=== PATIENT | female | born 1985 | race Caucasian/White ===

== ENCOUNTER 2016-10-09 20:39 | Emergency (ER) | payer OTHER ==
[2016-10-09 21:27] VITALS: BP 138/77
--- NOTE | 2016-10-09 23:51 | EDM.PDOC ---
ED HPI GI/ABDOMINAL - General Chief Complaint: Abdominal Pain Stated Complaint: ABDOMINAL PAIN Time Seen by Provider: 10/09/16 22:32 Source: Reports: Patient History Limitations: Reports: No limitations - History of Present Illness INITIAL COMMENTS - FREE TEXT/NARRATIVE: This patient complains of vomiting and diarrhea since yesterday. It's worse in the upper abdomen and down both sides. It seems to help if she sits up and crutches over a little bit. It's worse supine and standing. She had a little bit of fever yesterday and chills this morning. She's had a cholecystectomy and appendectomy. Her last diarrhea was tonight at 7 PM and was greenish appearing presently the pain is across the upper abdomen - Related Data Allergies/ADRs: Allergies Allergy/AdvReac Type Severity Reaction Status Date / Time latex Allergy Rash Verified 10/09/16 21:19 Home Meds: Home Meds ARIPiprazole [Abilify] 0.5 tab PO DAILY 10/09/16 [History] Sertraline [Zoloft] 1 tab PO DAILY 10/09/16 [History] Past Medical History - Past Surgical History GI Surgical History: Reports: Appendectomy, Cholecystectomy, Hernia, abdominal Social & Family History - Tobacco Use Smoking Status *Q: Never Smoker ED ROS GENERAL - Review of Systems Review Of Systems: See Below Constitutional: Reports: chills, weight gain Respiratory: Reports: No Symptoms Cardiovascular: Reports: No symptoms Endocrine: Reports: no symptoms GI/Abdominal: Reports: Abdominal pain, Diarrhea, Vomiting : Reports: no symptoms Musculoskeletal: Reports: no symptoms Skin: Reports: no symptoms ED EXAM, GI/ABD - Physical Exam Exam: See Below Exam Limited By: No limitations General Appearance: alert, WD/WN, mild distress (She sitting up on the stretcher sort of a hunched over at the waist) Eyes: bilateral: normal appearance Throat/Mouth: Normal oropharynx Respiratory/Chest: lungs clear Cardiovascular: regular rate, rhythm GI/Abdominal: normal bowel sounds, soft, mass (There is some stool mass palpable to the entire right side of abdomen. It's mildly tender. There is some tenderness in the epigastric area which is mild to moderate.) Extremities: normal inspection Skin Exam: Warm, Dry Course - Vital Signs Last Recorded V/S: Last Vital Signs Temp 37.1 C 10/09/16 21:26 Pulse 89 10/09/16 21:26 Resp 14 10/09/16 21:26 BP 138/77 10/09/16 21:26 Pulse Ox 97 10/09/16 21:26 - Orders/Labs/Meds Orders: Active Orders 24 hr Category Date Time Status Abdomen 2V AP Flat Upright [CR] Stat Exams 10/09/16 22:41 Taken Labs: Laboratory Tests 10/09/16 10/09/16 10/09/16 Range/Units 22:41 22:41 22:43 WBC 12.3 H (4.5-11.0) K/uL RBC 4.73 (3.30-5.50) M/uL Hgb 13.7 (12.0-15.0) g/dL Hct 41.8 (36.0-48.0) % MCV 88 (80-98) fL MCH 29 (27-31) pg MCHC 33 (32-36) % Plt Count 353 (150-400) K/uL Neut % (Auto) 66 (36-66) % Lymph % (Auto) 28 (24-44) % Hendricks % (Auto) 5 (2-6) % Eos % (Auto) 1 L (2-4) % Baso % (Auto) 1 (0-1) % Sodium 141 (140-148) mmol/L Potassium 3.8 (3.6-5.2) mmol/L Chloride 106 (100-108) mmol/L Carbon Dioxide 26 (21-32) mmol/L Anion Gap 9.0 (5.0-14.0) mmol/L BUN 8 (7-18) mg/dL Creatinine 0.9 (0.6-1.0) mg/dL Est Cr Clr Drug Dosing 92.20 mL/min Estimated GFR (MDRD) > 60 (>60) Glucose 99 (74-106) mg/dL Calcium 8.9 (8.5-10.1) mg/dL Total Bilirubin 0.1 L (0.2-1.0) mg/dL AST 15 (15-37) U/L ALT 34 (12-78) U/L Alkaline Phosphatase 61 (46-116) U/L Total Protein 7.6 (6.4-8.2) g/dL Albumin 3.7 (3.4-5.0) g/dL Globulin 3.9 H (2.3-3.5) g/dL Albumin/Globulin Ratio 1.0 L (1.2-2.2) Amylase 109 (25-115) U/L Lipase (73-393) U/L Urine Color Urine Appearance Urine pH (4.5-8.0) Ur Specific [place] (1.008-1.030) Urine Protein (NEGATIVE) mg/dL Urine Glucose (UA) (NEGATIVE) mg/dL Urine Ketones (NEGATIVE) mg/dL Urine Occult Blood (NEGATIVE) Urine Nitrite (NEGATIVE) Urine Bilirubin (NEGATIVE) Urine Urobilinogen (NORMAL) mg/dL Ur Leukocyte Esterase (NEGATIVE) Urine RBC (0-5) Urine WBC (0-5) Ur Epithelial Cells Amorphous Sediment Urine Bacteria Urine Mucus 10/09/16 10/09/16 Range/Units 22:44 22:46 WBC (4.5-11.0) K/uL RBC (3.30-5.50) M/uL Hgb (12.0-15.0) g/dL Hct (36.0-48.0) % MCV (80-98) fL MCH (27-31) pg MCHC (32-36) % Plt Count (150-400) K/uL Neut % (Auto) (36-66) % Lymph % (Auto) (24-44) % [place]ricks % (Auto) (2-6) % Eos % (Auto) (2-4) % Baso % (Auto) (0-1) % Sodium (140-148) mmol/L Potassium (3.6-5.2) mmol/L Chloride (100-108) mmol/L Carbon Dioxide (21-32) mmol/L Anion Gap (5.0-14.0) mmol/L BUN (7-18) mg/dL Creatinine (0.6-1.0) mg/dL Est Cr Clr Drug Dosing mL/min Estimated GFR (MDRD) (>60) Glucose (74-106) mg/dL Calcium (8.5-10.1) mg/dL Total Bilirubin (0.2-1.0) mg/dL AST (15-37) U/L ALT (12-78) U/L Alkaline Phosphatase (46-116) U/L Total Protein (6.4-8.2) g/dL Albumin (3.4-5.0) g/dL Globulin (2.3-3.5) g/dL Albumin/Globulin Ratio (1.2-2.2) Amylase (25-115) U/L Lipase 252 (73-393) U/L Urine Color Yellow Urine Appearance Clear Urine pH 5.0 (4.5-8.0) Ur Specific [place] 1.025 (1.008-1.030) Urine Protein Negative (NEGATIVE) mg/dL Urine Glucose (UA) Normal (NEGATIVE) mg/dL Urine Ketones Negative (NEGATIVE) mg/dL Urine Occult Blood Moderate (NEGATIVE) Urine Nitrite Negative (NEGATIVE) Urine Bilirubin Negative (NEGATIVE) Urine Urobilinogen Normal (NORMAL) mg/dL Ur Leukocyte Esterase Negative (NEGATIVE) Urine RBC 0-5 (0-5) Urine WBC 0-5 (0-5) Ur Epithelial Cells Moderate Amorphous Sediment Urine Bacteria Few Urine Mucus Not seen - Radiology Interpretation Free Text/Narrative:: Abdominal film generally showed a nonspecific gas pattern. There is moderate stool mass throughout the entire ascending colon and proximal part of the transverse colon. After that the colon is fairly well clear. - Re-Assessments/Exams Free Text/Narrative Re-Assessment/Exam: 10/10/16 06:50 Labs were reviewed with the patient and are generally clear. I showed her photographs of her abdominal films demonstrating the stool mass in the descending colon. Questions were answered. The photographs were then deleted in her presence. Use of a laxative was discussed as well as a high fiber diet after her bowels or cleared. It is expected that a lot of her symptoms will be relieved once the stool mass is cleared out. If she is doesn't get relief or at anytime she gets worse she should follow up with her Dr. or return to the ER Departure - Departure Time of Disposition: 23:48 Disposition: Home, Self-Care 01 Condition: fair Clinical Impression: Abdominal pain, Constipation Instructions: High-Fiber Diet, Constipation, Adult Referrals: Deshaun Ray MD [Primary Care Provider] - Forms: ED Department Discharge Additional Instructions: Try using a laxative such as milk of magnesia. Take 2 tablespoons and drink several glasses of water. This will help mobilize this stool in the right side of your abdomen. This may be what is causing the pain. When you take the milk of magnesia you may get some cramping from it. It's okay to use the pain medication for that. A high fiber diet afterwards will help prevent constipation. The pain medication can cause sedation so use with caution. If you don't feel like you're getting better within the next 2 days or at anytime if worse then return to the ER or see your Dr. - My Orders Last 24 Hours: My Active Orders 10/09/16 22:41 Abdomen 2V AP Flat Upright [CR] Stat - Assessment/Plan Last 24 Hours: My Active Orders 10/09/16 22:41 Abdomen 2V AP Flat Upright [CR] Stat
--- NOTE | 2016-10-10 08:44 | CR ---
Abdomen supine Right upper quadrant clips indicating prior cholecystectomy. The bowel gas pattern is unremarkable. There is no bowel distention. There is no significant stool retention. There are no calculi overlyi ng the kidneys or along the course of the ureters. Impression: 1. No acute findings.
== END 2016-10-09 23:59 | disposition home or self-care (01) ==
LOC: JP.ED 20:39
DX: K59.00 Constipation, unspecified (principal); R10.13 Epigastric pain; Z90.49 Acquired absence of other specified parts of digestive tract; Z98.890 Other specified postprocedural states; Z79.899 Other long term (current) drug therapy; Z91.040 Latex allergy status
CPT/HCPCS: 36415; 74020; 74020-26; 80053; 81001; 82150; 83690; 85025; 99284

== ENCOUNTER 2017-12-05 16:29 | Emergency (ER) | payer OTHER ==
[2017-12-05] MEDS ORDERED: Aluminum Hydroxide/Magnesium Hydroxide/Simethicone Susp 30 ML Cup PO ONE (17:52)
--- NOTE | 2017-12-05 18:19 | EDM.PDOC ---
ED HPI GENERAL MEDICAL PROBLEM - General Chief Complaint: Chest Pain Stated Complaint: CHEST PAIN Time Seen by Provider: 12/05/17 17:00 Source of Information: Reports: Patient History Limitations: Reports: No Limitations - History of Present Illness INITIAL COMMENTS - FREE TEXT/NARRATIVE: 32-year-old female sent over from the clinic with epigastric pain for the last 48 hours. She is very anxious, pleuritic in nature and hurts when she takes a breath or bends forward. She is 32 years old and has a relative that from a heart attack at 31 years old so was very worried. She has no personal history of cardiac problems. No significant nausea or vomiting, she has not tried any antacid her pain medication. Onset: Gradual (Over the past 2 days) Severity: Moderate Associated Symptoms: Denies: Confusion, Fever/Chills, Nausea/Vomiting, Shortness of Breath Epigastric Pain Score (Numeric/FACES): 7 - Related Data Allergies Allergy/AdvReac Type Severity Reaction Status Date / Time latex Allergy Rash Verified 12/05/17 16:59 Home Meds: Home Meds Sertraline [Zoloft] 100 mg PO DAILY 10/09/16 [History] Past Medical History [employer] History: Reports: Musculoskeletal History: Reports: Back Pain, Chronic Psychiatric History: Reports: Anxiety, Panic Attack - Past Surgical History GI Surgical History: Reports: Appendectomy, Cholecystectomy, Hernia, Abdominal Social & Family History - Tobacco Use Smoking Status *Q: Never Smoker - Caffeine Use Caffeine Use: Reports: Soda - Recreational Drug Use Recreational Drug Use: No ED ROS GENERAL - Review of Systems Review Of Systems: See Below Constitutional: Reports: Malaise. Denies: Fever, Chills HEENT: Reports: No Symptoms Respiratory: Denies: Shortness of Breath Cardiovascular: Reports: Chest Pain. Denies: Palpitations GI/Abdominal: Reports: Abdominal Pain (Epigastric only). Denies: Nausea, Vomiting : Reports: No Symptoms Skin: Reports: No Symptoms Neurological: Reports: No Symptoms Psychiatric: Reports: Anxiety ED EXAM, GENERAL - Physical Exam Exam: See Below Exam Limited By: No Limitations General Appearance: Alert, No Apparent Distress, Anxious Eye Exam: Bilateral Eye: Normal Inspection (No jaundice) Respiratory/Chest: No Respiratory Distress, Lungs Clear Cardiovascular: Regular Rate, Rhythm. No: Extra Beats GI/Abdominal: Soft, Tender (She does react with tenderness to palpation in the epigastric area only) Extremities: Normal Inspection Neurological: Alert, Oriented Psychiatric: Anxious Skin Exam: Warm, Dry EKG INTERPRETATION Rhythm: NSR Course - Vital Signs Last Recorded V/S: Last Vital Signs Temp 97.3 F 12/05/17 16:56 Pulse 62 12/05/17 18:38 Resp 17 12/05/17 18:38 BP 125/68 12/05/17 18:38 Pulse Ox 98 12/05/17 18:38 - Orders/Labs/Meds Labs: Laboratory Tests 12/05/17 12/05/17 12/05/17 Range/Units 17:37 17:37 17:37 WBC 9.6 (4.5-11.0) K/uL RBC 4.68 (3.30-5.50) M/uL Hgb 13.3 (12.0-15.0) g/dL Hct 40.9 (36.0-48.0) % MCV 87 (80-98) fL MCH 28 (27-31) pg MCHC 33 (32-36) % Plt Count 311 (150-400) K/uL Neut % (Auto) 42 (36-66) % Lymph % (Auto) 48 H (24-44) % [place] % (Auto) 8 H (2-6) % Eos % (Auto) 1 L (2-4) % Baso % (Auto) 0 (0-1) % Sodium 137 L (140-148) mmol/L Potassium 3.2 L (3.6-5.2) mmol/L Chloride 104 (100-108) mmol/L Carbon Dioxide 21 (21-32) mmol/L Anion Gap 15.2 H (5.0-14.0) mmol/L BUN 10 (7-18) mg/dL Creatinine 1.0 (0.6-1.0) mg/dL Est Cr Clr Drug Dosing 82.23 mL/min Estimated GFR (MDRD) > 60 (>60) Glucose 92 (74-106) mg/dL Calcium 8.7 (8.5-10.1) mg/dL Total Bilirubin 0.3 D (0.2-1.0) mg/dL AST 16 (15-37) U/L ALT 30 (12-78) U/L Alkaline Phosphatase 65 (46-116) U/L Troponin I < 0.017 (0.000-0.056) ng/mL Total Protein 7.5 (6.4-8.2) g/dL Albumin 3.6 (3.4-5.0) g/dL Globulin 3.9 H (2.3-3.5) g/dL Albumin/Globulin Ratio 0.9 L (1.2-2.2) Meds: Medications Discontinued Medications Generic Name Dose Route Start Last Admin Trade Name Inocencio PRN Reason Stop Dose Admin Al Hydroxide/Mg Hydroxide 30 ml 12/05/17 17:52 12/05/17 18:11 Mag-Al Plus PO 12/05/17 17:53 30 ml ONETIME ONE Administration Hydromorphone HCl 1 mg 12/05/17 18:35 12/05/17 18:47 Dilaudid IM 12/05/17 18:36 1 mg ONETIME ONE Administration - Re-Assessments/Exams Free Text/Narrative Re-Assessment/Exam: 12/05/17 18:19 CBC and CMP were obtained. 30 mL of Maalox was given. EKG was normal. We also hernán a troponin. 12/05/17 18:35 Labs were normal, troponin was negative. We tried 30 mL Maalox it didn't help. She was given 1 mg of IM Dilaudid, we'll start her on daily omeprazole and will be set up for an EGD later this week. Departure - Departure Time of Disposition: 18:54 Disposition: Home, Self-Care 01 Condition: Good Clinical Impression: Atypical chest pain - Discharge Information Instructions: Nonspecific Chest Pain Referrals: Deshaun Ray MD [Primary Care Provider] - Forms: ED Department Discharge Care Plan Goals: 40 mg of omeprazole once daily 20 minutes before a meal. You will be set up for an EGD later this week.
[2017-12-05] MEDS ORDERED: HYDROmorphone 1 MG/ML Syringe IM ONE (18:35)
[2017-12-05 18:38] VITALS: BP 125/68
== END 2017-12-05 19:01 | disposition home or self-care (01) ==
LOC: JP.ED 16:29
DX: R07.89 Other chest pain (principal); Z91.040 Latex allergy status
CPT/HCPCS: 36415; 80053; 84484; 85025; 93005; 96372; 99285; A9270; J1170

== ENCOUNTER 2017-12-08 06:12 | Day surgery (SDC) | payer OTHER ==
[2017-12-08] MEDS ORDERED: Sodium Chloride 0.9% 1,000 ML IV SCH (07:15)
[2017-12-08] MEDS ORDERED: Propofol 200 MG/20 ML SDV ONE (07:19)
[2017-12-08] MEDS ORDERED: Midazolam 1 MG/ML 2 ML SDV ONE (07:19)
[2017-12-08] MEDS ORDERED: fentaNYL 100 MCG/2 ML SDV ONE (07:19)
[2017-12-08] MEDS ORDERED: ceFAZolin 2 GM in Premix Bag 1 BAG IV ONE (07:30)
--- NOTE | 2017-12-08 09:11 | OR ---
DATE OF PROCEDURE: 12/08/2017 PROCEDURE: Esophagogastroduodenoscopy. FINDINGS: 1. Very mild evidence of possible reflux. 2. No other gross abnormalities. COMPLICATIONS: None. [place] RAKER: None. ANESTHESIA: MAC. RISKS: Risks, benefits, alternatives, and limitations including, but not limited to infection, bleeding, and perforation were explained to the patient and wished to proceed. PROCEDURE IN DETAIL: The patient was placed in the left lateral decubitus position. The EGD scope was introduced and advanced atraumatically to the second part of the duodenum. The scope was brought back, retroflexed. No hiatal hernia, no gastritis, no ulceration. The GE junction showed very mild evidence of reflux. The esophagus was normal. The patient tolerated the procedure well. Akbar Matias MD /[id number] MTDD
[2017-12-08 09:28] VITALS: BP 117/54
== END 2017-12-08 09:35 | disposition home or self-care (01) ==
LOC: JP.SDS 06:12
PROVIDERS: ATTEND Surgery
DX: R10.10 Upper abdominal pain, unspecified (principal); K21.9 Gastro-esophageal reflux disease without esophagitis; F32.9 Major depressive disorder, single episode, unspecified; Z91.040 Latex allergy status
CPT/HCPCS: 43235; 81025; J0690; J2250; J2704; J3010; J7030